=== PATIENT | female | born 1975 | race Caucasian/White ===

== ENCOUNTER 2017-07-28 20:39 | Emergency (ER) | payer MEDICAID ==
[2017-07-28 20:39] VITALS: BMI 23.8
[2017-07-28 20:45] VITALS: RESP 18
[2017-07-28] MEDS ORDERED: Oxycodone/Acetaminophen 5/325 mg Tab PO STA (20:51)
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
[2017-07-28 22:40] VITALS: BP 108/71; PULSE 107; TEMP 98
[2017-07-28 23:00] VITALS: O2SAT 96
== END 2017-07-28 22:42 | disposition home or self-care (01) ==
LOC: H.ER 20:39
DX: S09.90XA Unspecified injury of head, initial encounter (principal); S30.814A Abrasion of vagina and vulva, initial encounter; Y04.0XXA Assault by unarmed brawl or fight, initial encounter; Y92.89 Other specified places as the place of occurrence of the external cause

== ENCOUNTER 2018-05-31 09:13 | Emergency (ER) | payer SELFPAY ==
[2018-05-31 09:14] VITALS: BMI 23.8
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
--- NOTE | 2018-05-31 10:37 | RAD ---
Date of service: 05/31/2018 PROCEDURE: Bilateral Knee Radiographs. HISTORY: pain COMPARISON: None. FINDINGS: BONES: Right Knee: Normal. No fracture. Left Knee: Normal. No fracture. JOINTS: Right Knee: Normal. No osteoarthritis. Left knee: Normal. No osteoarthritis. SOFT TISSUES: Right Knee: Normal. Left Knee: Normal. JOINT EFFUSION: Right Knee: None. Left Knee: None. OTHER FINDINGS: None. IMPRESSION: Normal radiographs of the knees.
--- NOTE | 2018-05-31 10:37 | RAD ---
PROCEDURE: Right Hand Radiographs. HISTORY: pain COMPARISON: None. FINDINGS: BONES: Normal. No fracture. JOINTS: Normal. No osteoarthritic changes. SOFT TISSUES: Normal. OTHER FINDINGS: None. IMPRESSION: Normal right hand radiographs.
--- NOTE | 2018-05-31 10:37 | RAD ---
Date of service: 05/31/2018 PROCEDURE: Radiographs of the right elbow. HISTORY: pain COMPARISON: No prior. FINDINGS: BONES: Normal. No fracture. JOINTS: Normal. No osteoarthritis. SOFT TISSUES: Normal. JOINT EFFUSION: None. OTHER FINDINGS: None. IMPRESSION: Unremarkable radiographs of the right elbow.
--- NOTE | 2018-05-31 11:27 | CT ---
Date of service: 05/31/2018 PROCEDURE: CT HEAD WITHOUT CONTRAST. HISTORY: headache COMPARISON: 07/28/2017 TECHNIQUE: Axial computed tomography images were obtained through the head/brain without intravenous contrast. Radiation dose: Total exam DLP = 829.97 mGy-cm. This CT exam was performed using one or more of the following dose reduction techniques: Automated exposure control, adjustment of the mA and/or kV according to patient size, and/or use of iterative reconstruction technique. FINDINGS: HEMORRHAGE: No intracranial hemorrhage. BRAIN: No mass effect or edema. No atrophy or chronic microvascular ischemic changes. VENTRICLES: Unremarkable. No hydrocephalus. CALVARIUM: Unremarkable. PARANASAL SINUSES: Unremarkable as visualized. No significant inflammatory changes. MASTOID AIR CELLS: Unremarkable as visualized. No inflammatory changes. OTHER FINDINGS: None. IMPRESSION: Normal CT of the Head. No intracranial mass, hemorrhage or evidence of acute infarct.
[2018-05-31 12:00] VITALS: BP 110/78; PULSE 87; RESP 19; TEMP 97.6; O2SAT 98
== END 2018-05-31 12:01 | disposition home or self-care (01) ==
LOC: H.ER 09:13
DX: S09.90XA Unspecified injury of head, initial encounter (principal); S49.91XA Unspecified injury of right shoulder and upper arm, initial encounter; W22.8XXA Striking against or struck by other objects, initial encounter; Y92.002 Bathroom of unspecified non-institutional (private) residence as the place of occurrence of the external cause

== ENCOUNTER 2018-06-09 04:27 | Emergency (ER) | payer SELFPAY ==
[2018-06-09 04:27] VITALS: BMI 23.8
[2018-06-09 04:46] VITALS: TEMP 99.9
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
[2018-06-09 06:43] VITALS: BP 100/65; PULSE 100; RESP 16; O2SAT 97
--- NOTE | 2018-06-09 08:49 | RAD ---
Date of service: 06/09/2018 HISTORY: COUGH COMPARISON: No prior. TECHNIQUE: Chest PA and lateral FINDINGS: LUNGS: No active pulmonary disease. PLEURA: No significant pleural effusion identified. No pneumothorax apparent. CARDIOVASCULAR: Normal. OSSEOUS STRUCTURES: No significant abnormalities. VISUALIZED UPPER ABDOMEN: Normal. OTHER FINDINGS: None. IMPRESSION: No active disease.
== END 2018-06-09 06:45 | disposition home or self-care (01) ==
LOC: H.ER 04:27
DX: R05 Cough (principal)

== ENCOUNTER 2018-08-13 23:39 | Emergency (ER) | payer SELFPAY ==
[2018-08-13 23:40] VITALS: BMI 23.8
[2018-08-13 23:49] VITALS: BP 111/69; PULSE 92; RESP 18; TEMP 98.4; O2SAT 97
== END 2018-08-14 02:02 | disposition left against medical advice (07) ==
LOC: H.ER 23:39
DX: Z02.89 Encounter for other administrative examinations (principal)

== ENCOUNTER 2018-09-21 22:30 | Emergency (ER) | payer MEDICAID ==
[2018-09-21 22:31] VITALS: BMI 23.8
[2018-09-21 22:46] VITALS: BP 119/65; PULSE 86; RESP 22; O2SAT 98
[2018-09-21 22:54] VITALS: TEMP 98.6
[2018-09-21] MEDS ORDERED: Albuterol-Ipratrop 3 mg / 0.5 (3 ml) UD IH STA (23:09)
--- NOTE | 2018-09-21 23:11 | ED PDOC ---
HPI: CCC, URI, Sore Throat Time Seen by Provider: 09/21/18 23:00 Chief Complaint (Nursing): Shortness Of Breath Chief Complaint (Provider): cough History Per: Patient History/Exam Limitations: no limitations Onset/Duration Of Symptoms: Days (3) Current Symptoms Are (Timing): Still Present Associated Symptoms: Nasal Congestion Additional Complaint(s): 43 y/o female presents for evaluation of cold symptoms x 3 days. Patient reports nasal discharge, productive cough, and bodyaches. Denies fever, chest pain, shortness of breath, palpitations, abdominal pain, vomiting/diarrhea, sick contacts. 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; remission since 2012) - Surgical History Surgical History: Cholecystectomy - Family History Family History: States: Unknown Family Hx - Immunization History Hx Tetanus Toxoid Vaccination: Yes Hx Influenza Vaccination: Yes Hx Pneumococcal Vaccination: Yes - Home Medications Home Medications: Ambulatory Orders Medication Instructions Recorded Hydrocortisone 0.5% CREAM 30 applic TOP BID PRN #1 tube 06/09/18 [Cortizone 0.5% CREAM] Promethazine/Codeine 5 ml PO Q12 PRN #100 ml 06/09/18 [Codeine/Promethazine 10 MG/5 Ml-6.25 MG/5 Ml] Albuterol HFA [Ventolin HFA 90 1 puff IH Q4 PRN #1 inh 09/22/18 mcg/actuation (8 g)] Azithromycin [Zithromax] 250 mg PO DAILY #1 packet 09/22/18 Promethazine/Codeine 5 ml PO Q8 PRN #75 ml 09/22/18 [Phenergan/Codeine Oral Syrup] - Allergies Allergies/Adverse Reactions: Allergies Allergy/AdvReac Type Severity Reaction Status Date / Time No Known Allergies Allergy Verified 08/13/18 23:48 Review of Systems ROS Statement: Except As Marked, All Systems Reviewed And Found Negative ENT: Positive for: Nose Discharge Respiratory: Positive for: Cough Physical Exam - Reviewed Nursing Documentation Reviewed: Yes Vital Signs Reviewed: Yes - Physical Exam Appears: Positive for: Well, Non-toxic, No Acute Distress Head Exam: Positive for: ATRAUMATIC, NORMAL INSPECTION, NORMOCEPHALIC Skin: Positive for: Normal Color Eye Exam: Positive for: Normal appearance ENT: Positive for: Normal ENT Inspection Cardiovascular/Chest: Positive for: Regular Rate, Rhythm Respiratory: Positive for: Normal Breath Sounds Gastrointestinal/Abdominal: Positive for: Normal Exam Back: Positive for: Normal Inspection Extremity: Positive for: Normal ROM Neurologic/Psych: Positive for: Alert, Oriented (x3) - ECG O2 Sat by Pulse Oximetry: 98 - Radiology X-Ray: Viewed By [place] X-Ray Interpretation: No Acute Disease - Progress ED Course And Treament: -duoneb x 1 -Toradol IM -cxr -influenza Patient educated on findings, discharged with rx Albuterol HFA, Promethazine with codeine, Zpak Advised follow up PMD within 2-3 days Return precautions given Disposition - Clinical Impression Clinical Impression: Bronchitis - Patient ED Disposition Is Patient to be Admitted: No Counseled Patient/Family Regarding: Studies Performed, Diagnosis, Need For Followup, Rx Given - Disposition Disposition: Routine/Home Disposition Time: 00:04 Condition: IMPROVED Prescriptions: Albuterol HFA [Ventolin HFA 90 mcg/actuation (8 g)] 1 puff IH Q4 PRN #1 inh PRN Reason: Wheezing Azithromycin [Zithromax] 250 mg PO DAILY #1 packet Promethazine/Codeine [Phenergan/Codeine Oral Syrup] 5 ml PO Q8 PRN #75 ml PRN Reason: Cough Instructions: Acute Bronchitis Forms: [employer] (Lebanese)
[2018-09-21] MEDS ORDERED: Albuterol-Ipratrop 3 mg / 0.5 (3 ml) UD ONE (23:25)
--- NOTE | 2018-09-22 09:51 | RAD ---
Date of service: 09/21/2018 HISTORY: cough COMPARISON: No prior. TECHNIQUE: Chest PA and lateral FINDINGS: LUNGS: No active pulmonary disease. PLEURA: No significant pleural effusion identified. No pneumothorax apparent. CARDIOVASCULAR: No aortic atherosclerotic calcification present. Normal cardiac size. No pulmonary vascular congestion. OSSEOUS STRUCTURES: No significant abnormalities. VISUALIZED UPPER ABDOMEN: Normal. OTHER FINDINGS: None. IMPRESSION: No active disease.
== END 2018-09-22 00:36 | disposition home or self-care (01) ==
LOC: H.ER 22:30
DX: J40 Bronchitis, not specified as acute or chronic (principal); Z79.899 Other long term (current) drug therapy; Z94.81 Bone marrow transplant status
CPT/HCPCS: 71046; 81025; 87070; 87430; 87804; 94150; 94640; 96372; 99285; J1885

== ENCOUNTER 2019-01-12 03:37 | Emergency (ER) | payer MEDICAID, OTHER ==
[2019-01-12 03:37] VITALS: BMI 32.9
[2019-01-12 04:14] VITALS: O2SAT 98
--- NOTE | 2019-01-12 05:10 | ED PDOC ---
History of Present Illness History of Present Illness: 43 y/o F with hx of leukemia s/p Bone marrow transplant in 2010 who presents for evaluation of flu-like symptoms. Pt states that she developed a cough 3 days ago, productive of yellow sputum. She saw her PMD who stated her on a Z-yeni but she has not seen much improvement with this and her cough has persisted. Denies fever, chills, night sweats, ear pain, vomiting. She had a couple of episodes of diarrhea 2 days ago but denies N/v. + pleuritic C/P. Has been taking Robitussin for cough and Ibuprofen for pain, last taken at 12pm today. 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; remission since 2012) - Surgical History Surgical History: Cholecystectomy - Family History Family History: States: Unknown Family Hx - Immunization History Hx Tetanus Toxoid Vaccination: Yes Hx Influenza Vaccination: Yes Hx Pneumococcal Vaccination: Yes - Home Medications Home Medications: Ambulatory Orders Medication Instructions Recorded Ibuprofen [Motrin] 600 mg PO TID #15 tab 10/28/18 Ciprofloxacin [Cipro] 1 tab PO BID #14 tab 11/22/18 Docusate Sodium [Colace] 100 mg PO BID #20 capsule 11/22/18 Naproxen 375 mg PO TIDPC #14 tablet 11/22/18 - Allergies Allergies/Adverse Reactions: Allergies Allergy/AdvReac Type Severity Reaction Status Date / Time No Known Allergies Allergy Verified 10/28/18 13:08 Review of Systems Constitutional: Negative for: Fever, Chills ENT: Negative for: Nose Discharge, Nose Congestion Cardiovascular: Positive for: Chest Pain Respiratory: Positive for: Cough, Shortness of Breath, Pleuritic Pain Gastrointestinal: Positive for: Diarrhea. Negative for: Nausea, Vomiting Physical Exam - Reviewed Nursing Documentation Reviewed: Yes Vital Signs Reviewed: Yes - Physical Exam Appears: Positive for: Uncomfortable Cardiovascular/Chest: Positive for: Regular Rate, Rhythm. Negative for: Chest Non Tender Respiratory: Positive for: Normal Breath Sounds Gastrointestinal/Abdominal: Positive for: Tenderness (mild tenderness on palpation of LUQ, RLQ). Negative for: Mass, Guarding, Rebound Neurological/Psych: Positive for: Awake, Alert Medical Decision Making Medical Decision Making: CXR PA and lateral Toradol 30mg IM x 1 Rapid flu CXR read by me: no active pulmonary disease Rapid flu negative - ECG O2 Sat by Pulse Oximetry: 98 Disposition - Clinical Impression Clinical Impression: Bronchitis - Patient ED Disposition Is Patient to be Admitted: No Counseled Patient/Family Regarding: Studies Performed, Diagnosis, Need For Followup - Disposition Disposition: Routine/Home Disposition Time: 06:33 Condition: STABLE Forms: [facility] (Serbian)
[2019-01-12 06:56] VITALS: BP 128/88; PULSE 77; RESP 16; TEMP 98.8
--- NOTE | 2019-01-12 13:28 | RAD ---
Date of service: 01/12/2019 HISTORY: SOB, cough COMPARISON: Comparison chest 09/21/2018 TECHNIQUE: Chest PA and lateral views FINDINGS: LUNGS: Minor bibasilar atelectasis PLEURA: No significant pleural effusion identified. No pneumothorax apparent. CARDIOVASCULAR: No aortic atherosclerotic calcification present. Normal cardiac size. No pulmonary vascular congestion. OSSEOUS STRUCTURES: No significant abnormalities. VISUALIZED UPPER ABDOMEN: Normal. OTHER FINDINGS: None. IMPRESSION: Minor bibasilar atelectasis.
== END 2019-01-12 07:03 | disposition home or self-care (01) ==
LOC: H.ER 03:37
DX: J40 Bronchitis, not specified as acute or chronic (principal); Z94.81 Bone marrow transplant status
CPT/HCPCS: 71046; 81025; 87804; 96372; 99283; J1885